=== PATIENT | male | born 1965 ===

== ENCOUNTER 2017-11-30 07:15 | Day surgery (SDC) | payer BC ==
[2017-11-30] MEDS ORDERED: Propofol 10 mg/ml Inj (20 ML) ONE ×2 (08:19→08:36)
[2017-11-30] MEDS ORDERED: Lactated Ringer's 1,000 ML IV ONE (08:19)
[2017-11-30] MEDS ORDERED: Midazolam 2 MG/2 ML VIAL ONE (08:19)
--- NOTE | 2017-11-30 08:20 | CP.SDSHP ---
Same Day Surgery H & P - History Proposed Procedure: Screening colonoscopy (high risk) Pre-Op Diagnosis: Personal history of colon polyps - Previous Medical/Surgical History Cardiac: Hypertension Previous Surgical History: none - Allergies Allergies: Allergies No Known Allergies Allergy (Verified 11/30/17 07:30) - Current Medications Current Medications: See reconciliation sheet - Physical Exam General Appearance: WD WN male in NAD Vital Signs: Vital Signs 11/30/17 07:30 Temperature 98.7 F Pulse Rate 81 Respiratory 20 Rate Blood Pressure 131/81 O2 Sat by Pulse 98 Oximetry Mental Status: Alert & Oriented x3 Neuro: WNL Heart: WNL Lungs: WNL GI: WNL - {Optional Preform as Required} Abdomen: WNL - Impression Impression: Personal history of colon polyps Pt. Evaluated Today:Candidate for Anesthesia & Procedure: Yes - Date & Time Date: 11/30/17 Time: 08:20 Short Stay Discharge - Short Stay Discharge Admitting Diagnosis/Reason for Visit: P/H COLONIC POLYPS Disposition: HOME/ ROUTINE
[2017-11-30] MEDS ORDERED: Lidocaine Hydrochloride 5 ML INJ ONE (08:23)
[2017-11-30 08:52] VITALS: TEMP 96.8
[2017-11-30 09:14] VITALS: O2SAT 100
[2017-11-30 09:47] VITALS: PULSE 71
[2017-11-30 09:51] VITALS: BP 119/74; RESP 21
== END 2017-11-30 09:50 | disposition home or self-care (01) ==
LOC: C.ENDO 07:15
PROVIDERS: ATTEND Internal Medicine Gastroenterology
DX: Z12.11 Encounter for screening for malignant neoplasm of colon (principal); K62.1 Rectal polyp; Z86.010 Personal history of colon polyps; I10 Essential (primary) hypertension; K57.30 Diverticulosis of large intestine without perforation or abscess without bleeding
CPT/HCPCS: 45384; 88305; J2250; J2704; J7120